=== PATIENT | female | born 1955 | race Caucasian/White ===

== ENCOUNTER 2023-06-07 11:50 | Emergency (ER) | payer MEDICARE, BC ==
[2023-06-07] MEDS ORDERED: fentaNYL 100 MCG/2 ML SDV ONE ×2 (12:00)
[2023-06-07] MEDS ORDERED: Midazolam 1 MG/ML 2 ML SDV ONE ×3 (12:25→14:23)
[2023-06-07] MEDS ORDERED: fentaNYL 250 MCG/5 ML SDV ONE (12:33)
[2023-06-07] MEDS ORDERED: Ketamine 500 mg/10 ML MDV ONE (12:33)
[2023-06-07] MEDS ORDERED: ceFAZolin 2 GM Vial ONE (12:59)
[2023-06-07] MEDS ORDERED: Etomidate 2 MG/ML 20 ML SDV IVPUSH ONE (13:00)
[2023-06-07] MEDS ORDERED: Atropine 0.1 MG/ML 10 ML Syringe ONE (13:00)
[2023-06-07] MEDS ORDERED: Rocuronium 50 MG/5 ML Vial ONE (13:00)
[2023-06-07] MEDS ORDERED: Succinylcholine 200 MG/10 ML MDV ONE (13:00)
[2023-06-07] MEDS ORDERED: Sodium Chloride 0.9% 100 ML ONE ×3 (13:13→14:19)
[2023-06-07] MEDS ORDERED: Sodium Chloride 0.9% 2,000 ML ONE ×2 (13:13→13:34)
[2023-06-07] MEDS ORDERED: Phenylephrine 1% 10 MG/ML SDV ONE ×2 (13:30)
[2023-06-07] MEDS ORDERED: Piperacillin/Tazobactam 4.5 GM in Sodium Chloride 0.9% 100 ML IV ONE (14:03)
[2023-06-07 14:04] LABS: BASE EXCESS ARTERIAL -8.3 (-2-2.0); BICARBONATE,ARTERIAL 18.9 meq/L (22.0-26.0); PCO2 ARTERIAL 49.3 mmHg (35.0-45.0)
[2023-06-07 14:09] LABS: BASOPHILS ABSOLUTE AUTO 0.01 K/mm3 (0.01-0.08); BASOPHILS PERCENT AUTO 0.2 % (0.1-1.2); EOSINOPHILS ABSOLUTE AUTO 0.04 K/mm3 (0.04-0.36); EOSINOPHILS PERCENT AUTO 0.6 (0.7-5.8); HEMATOCRIT 29.3 % (34.1-44.9); HEMOGLOBIN 9.7 gm/dl (11.2-15.7); IMMATURE GRAN ABSOLUTE AUTO 0.05 K/mm3 (0.00-0.10); IMMATURE GRAN PERCENT AUTO 0.8 % (<=1.0); LYMPHOCYTES ABSOLUTE AUTO 0.99 K/mm3 (1.18-3.74); LYMPHOCYTES PERCENT AUTO 14.9 % (19.3-51.7); MEAN CORPUSCULAR HEMOGLOBIN 31.9 pg (25.6-32.2); MEAN CORPUSCULAR HGB CONC 33.1 g/dl (32.2-35.5); MEAN CORPUSCULAR VOLUME 96.4 fl (79.4-94.8); MEAN PLATELET VOLUME 8.4 fl (9.4-12.3); MONOCYTES ABSOLUTE AUTO 0.21 K/mm3 (0.24-0.36); MONOCYTES PERCENT AUTO 3.2 % (4.7-12.5); NEUTROPHILS ABSOLUTE AUTO 5.33 K/mm3 (1.56-6.13); NEUTROPHILS PERCENT AUTO 80.3 % (34.0-71.1); PLATELET COUNT,PLT 143 K/mm3 (182-369); RED BLOOD CELL COUNT 3.04 M/mm3 (3.98-5.22); WHITE BLOOD CELL COUNT,WBC 6.63 K/mm3 (3.98-10.04)
[2023-06-07] MEDS ORDERED: Midazolam 5 MG/ML 10 ML MDV ONE ×2 (14:18→14:21)
[2023-06-07] MEDS ORDERED: ePHEDrine 50 MG/ML SDV ONE (14:27)
[2023-06-07 14:28] LABS: INR 1.28; PROTHROMBIN TIME 13.4 SECONDS (9.7-12.0)
[2023-06-07 14:29] LABS: PTT,PARTIAL THROMBOPLSTIN TIME 25.5 SECONDS (21.7-31.4)
[2023-06-07 14:35] LABS: A/G RATIO 1.1 (1-2); ALANINE AMINOTRANSFERASE,ALT 78 U/L (14-59); ALKALINE PHOSPHATASE 35 U/L (46-116); ANION GAP 12.9 (5-15); ASPARTATE AMNIOTRANSFERASE,AST 84 U/L (15-37); BILIRUBIN TOTAL 0.2 mg/dL (0.2-1.0); BLOOD UREA NITROGEN,BUN 22 mg/dL (7-18); BUN/CREATININE RATIO 36.7 (14-18); CALCIUM 6.4 mg/dL (8.5-10.1); CARBON DIOXIDE,CO2 21 mEq/L (21-32); CHLORIDE,CL 113 mEq/L (98-107); CREATININE 0.6 mg/dL (0.55-1.02); ESTIMATED GFR 98 mL/min (>60); GLUCOSE RANDOM 164 mg/dL (70-99); POTASSIUM,K 3.9 mEq/L (3.5-5.1); PROTEIN TOTAL,TP 3.8 g/dl (6.4-8.2); SODIUM,NA 143 mEq/L (136-145)
[2023-06-07] MEDS ORDERED: Norepinephrine 4 MG in Dextrose 5% in Water 246 ML IV SCH ×2 (14:45)
[2023-06-07] MEDS ORDERED: fentaNYL 2,500 MCG in Sodium Chloride 0.9% 200 ML IV SCH (15:00)
[2023-06-07] MEDS ORDERED: Sodium Chloride 0.9% 1,000 ML IV SCH (15:00)
[2023-06-07] MEDS ORDERED: Sodium Chloride 0.9% 500 ML ONE (16:42)
[2023-06-07] MEDS ORDERED: Piperacillin/Tazobactam 4.5 GM in Sodium Chloride 0.9% 100 ML IV SCH (22:15)
== END 2023-06-07 12:11 | disposition critical access hospital (66) ==
LOC: JD.ED 11:50 → EDBD 11:50 → JD.ED 12:11
DX: S31.109A Unspecified open wound of abdominal wall, unspecified quadrant without penetration into peritoneal cavity, initial encounter (principal); S99.922A Unspecified injury of left foot, initial encounter; R07.9 Chest pain, unspecified; V80.018A Animal-rider injured by fall from or being thrown from other animal in noncollision accident, initial encounter
CPT/HCPCS: 36415; 36430; 36600; 43752; 51702; 71045; 74018; 80053; 82803; 85025; 85610; 85730; 86850; 86900; 86901; 86922; 88307; 96365; 96368; 99285; J0330; J0461; J0690; J2250; J2370; J2543; J3010; J3490; J7030; J7050; J7060; P9016; P9017; 00840; 99140